=== PATIENT | male | born 1970 | race Caucasian/White ===

== ENCOUNTER 2020-08-01 01:32 | Emergency (ER) | payer OTHER ==
[~2020-08-01] VITALS: Ht 177.8 cm; Wt 90.7 kg
[2020-08-01] MEDS ORDERED: Vibramycin100 MG PO (02:14)
== END 2020-08-01 02:29 | disposition home or self-care (01) ==
LOC: ER 01:32
DX: L03.115 Cellulitis of right lower limb (principal); F11.10 Opioid abuse, uncomplicated
CPT/HCPCS: 99283; A9270